=== PATIENT | female | born 1955 | race Two or more races ===

== ENCOUNTER → 2018-12-01 | Outpatient (CLI) | payer OTHER ==
--- NOTE | 2018-12-01 20:09 | REP ---
BILATERAL SCREENING DIGITAL MAMMOGRAM WITHOUT 3D TOMOSYNTHESIS: There are no palpable abnormalities or other breast complaints. The the patient states she has not had a clinical breast examination in over a year. The Tyrer-Cuzick Score is: 8.6% . Comparison is 03/19/2013. The breasts are extremely dense, which lowers the sensitivity of mammography. There is no dominant mass, micro calcific cluster or architectural distortion that would indicate malignancy. There are benign calcifications. There is no change from the prior study. Impression: BIRADS/ACR category 2 mammogram. Benign findings. Recommendation: Routine annual screening mammography. Because of the increased breast density, annual adjunctive breast MRI in addition to screening mammography is recommended. These can be performed at alternating six month intervals. This mammogram was interpreted with the aid of a FDA approved computer-aided detection system. A. Negative mammogram reports should not delay biopsy if a dominant or clinically suspicious mass is present. B. Not all breast cancers are identified by mammography or tomosynthesis. C. Adenosis and dense breasts may obscure an underlying neoplasm. Patient letter M1 dense breasts. Electronically Signed by Ted Singh MD 12/01/2018 08:01 P
== END ==
LOC: M RAD 16:34
PROVIDERS: ATTEND Family Medicine
DX: Z12.31 Encounter for screening mammogram for malignant neoplasm of breast (principal)

== ENCOUNTER → 2020-12-08 | Outpatient (REF) | payer MEDICARE, OTHER | LOC: M SFHCWAGY 14:29 | PROVIDERS: ATTEND Obstetrics & Gynecology | DX: C54.1 Malignant neoplasm of endometrium (principal); N95.0 Postmenopausal bleeding | CPT/HCPCS: 58100; 88305; G0463 ==

== ENCOUNTER → 2020-12-14 | Outpatient (CLI) | payer MEDICARE, OTHER ==
--- NOTE | 2020-12-14 09:54 | REPMRS ---
Patient History The patient states she has not had a clinical breast exam in over a year. Patient is postmenopausal and has history of endometrial cancer at age 65. Family history of endometrial cancer in sister, prostate cancer at age 70 in father. Patient states she had a left breast bx years ago that was neg. Tomosynthesis is performed. Volpara breast density is c. Tyrer-Cuzick lifetime risk of breast cancer 7.9%. No breast complaints today Patient signed the MRS sheet Patient states she has had both Pfizer vaccines in the right arm-not sure of dates Priors on PACS Patient Identification Verified Digital Woman Screen Mammo: December 14, 2020 - Exam #: [id number] Bilateral CC and MLO view(s) were taken. Technologist: Marzena Holloway, Technologist Prior study comparison: December 01, 2018, bilateral digital mammo screening bilat, performed at [facility]. March 19, 2013, bilateral bilat screen digital mammo, performed at [facility] ([facility]). FINDINGS: The breast tissue is heterogeneously dense. This may lower the sensitivity of mammography. There has been no change in the appearance of the mammogram from the prior studies. There is a moderate amount of residual fibroglandular tissue which is fairly symmetric. There is no interval development of dominant mass, areas of architectural distortion, or clustered microcalcification typical of malignancy. Assessment: BI-RADS/ACR category 1 mammogram. Negative Mammogram. Recommendation Routine screening mammogram in 1 year (for women over age 40). This mammogram was interpreted with the aid of an FDA-approved computer-aided dectection system. Electronically Signed By: Ted Nelson MD 12/14/20 [id number]
== END ==
LOC: M WHC 08:22
PROVIDERS: ATTEND Nurse Practitioner Primary Care
DX: Z12.31 Encounter for screening mammogram for malignant neoplasm of breast (principal); Z78.0 Asymptomatic menopausal state; Z85.42 Personal history of malignant neoplasm of other parts of uterus; Z80.49 Family history of malignant neoplasm of other genital organs; Z80.42 Family history of malignant neoplasm of prostate

== ENCOUNTER → 2022-06-20 | Outpatient (CLI) | payer MEDICARE, OTHER | LOC: M WHC 07:13 | PROVIDERS: ATTEND Nurse Practitioner Primary Care | DX: Z12.31 Encounter for screening mammogram for malignant neoplasm of breast (principal) ==

== ENCOUNTER → 2023-07-25 | Outpatient (CLI) | payer MEDICARE, OTHER | LOC: M WHC 07:17 | PROVIDERS: ATTEND Nurse Practitioner Primary Care | DX: Z12.31 Encounter for screening mammogram for malignant neoplasm of breast (principal); R92.333 Mammographic heterogeneous density, bilateral breasts ==

== ENCOUNTER → 2024-09-23 | Outpatient (CLI) | payer MEDICARE, OTHER | LOC: M WHC 07:05 | PROVIDERS: ATTEND Internal Medicine | DX: Z12.31 Encounter for screening mammogram for malignant neoplasm of breast (principal); Z91.89 Other specified personal risk factors, not elsewhere classified; Z78.0 Asymptomatic menopausal state ==